=== PATIENT | male | born 1950 | race Caucasian/White ===

== ENCOUNTER 2021-02-15 14:19 | Observation (INO) ==
[2021-02-15] MEDS ORDERED: *HR* Heparin 5,000 UNIT/ML VIAL IVP ONE ×2 (16:27→16:47)
[2021-02-15] MEDS ORDERED: *HR* Heparin 5,000 UNIT/ML VIAL IVP PRN ×4 (16:27→16:47)
[2021-02-15] MEDS ORDERED: Ondansetron 4 MG/2 ML VIAL IVP PRN (16:29)
[2021-02-15] MEDS ORDERED: Acetaminophen 325 MG TABLET PO PRN (16:29)
[2021-02-15] MEDS ORDERED: Melatonin 3 MG TABLET PO PRN (16:29)
[2021-02-15] MEDS ORDERED: Heparin 25,000 UNIT/250 ML 25,000 UNIT/250 ML IV.SOLN IVC SCH ×3 (16:30→17:15)
[2021-02-15] MEDS ORDERED: 0.9 % Sodium Chloride 1,000 ML IVC SCH ×2 (16:30→23:45)
[2021-02-15] MEDS ORDERED: Heparin 25,000UNIT/250ML 1/2NS 25,000 UNIT/250 ML IV.SOLN IVC SCH (17:00)
[2021-02-15 17:39] LABS: Hematocrit 39.6 % (37.5-50.1); Hemoglobin 12.6 g/dL (12.9-16.9); Mean Corpuscular HGB Conc 31.8 g/dL (31.6-35.5); Mean Corpuscular Hemoglobin 27.5 pg (28.0-33.3); Mean Corpuscular Volume 86.3 fL (83.0-100.0); Platelet Count 281 K/mcL (140-400); Red Blood Count 4.59 M/mcL (4.19-5.50); Red Cell Distribution Width 13.7 % (11.5-14.5); White Blood Count 7.1 K/mcL (4.3-11.1)
[2021-02-15 17:59] LABS: BUN/Creatinine Ratio 16 (6-26); Blood Urea Nitrogen 16 mg/dL (8-23); Calcium 8.9 mg/dL (8.6-10.3); Carbon Dioxide 25 mEq/L (23-29); Chloride 104 mEq/L (98-107); Glucose 116 mg/dL (70-105); Osmolality,Calculated 288 (280-300); Potassium 3.8 mEq/L (3.5-5.1); Sodium 138 mEq/L (136-145); eGFR For African Americans > 60 (> 60); eGFR For Non-African Americans > 60 (> 60)
[2021-02-15 18:36] LABS: INR 1.5; Prothrombin Time 16.8 Seconds (9.4-12.1)
[2021-02-15 18:39] LABS: Activated Partial Thrombo Time 83.5 Seconds (26.0-36.0)
[2021-02-15 18:52] LABS: Heparin anti-factor XA UFH 1.67 IU/mL (0.30-0.70)
[2021-02-15] MEDS: Gabapentin 300 MG CAPSULE PO SCH (20:54)
[2021-02-16 01:59] LABS: Hematocrit 36.4 % (37.5-50.1); Hemoglobin 11.9 g/dL (12.9-16.9); Mean Corpuscular HGB Conc 32.7 g/dL (31.6-35.5); Mean Corpuscular Hemoglobin 28.3 pg (28.0-33.3); Mean Corpuscular Volume 86.5 fL (83.0-100.0); Mean Platelet Volume 9.9 fL (9.4-12.4); Platelet Count 244 K/mcL (140-400); Red Blood Count 4.21 M/mcL (4.19-5.50); Red Cell Distribution Width 13.7 % (11.5-14.5); White Blood Count 6.6 K/mcL (4.3-11.1)
[2021-02-16 02:17] LABS: Magnesium 2.1 mg/dL (1.6-2.6); Phosphorous 3.2 mg/dL (2.7-4.5)
[2021-02-16 02:18] LABS: BUN/Creatinine Ratio 16 (6-26); Blood Urea Nitrogen 17 mg/dL (8-23); Calcium 8.3 mg/dL (8.6-10.3); Carbon Dioxide 25 mEq/L (23-29); Chloride 108 mEq/L (98-107); Glucose 95 mg/dL (70-105); Osmolality,Calculated 289 (280-300); Sodium 139 mEq/L (136-145); eGFR For African Americans > 60 (> 60); eGFR For Non-African Americans > 60 (> 60)
[2021-02-16] MEDS ORDERED: lisinopriL 20 MG TABLET PO SCH (09:00)
[2021-02-16] MEDS: Gabapentin 300 MG CAPSULE PO SCH (09:29)
[2021-02-16 11:14] VITALS: BP 131/83; PULSE 82; TEMP 98.6; O2SAT 96
== END 2021-02-16 13:13 | disposition home or self-care (01) ==
LOC: 3ANU → SUATTDRO 15:30
PROVIDERS: ADMIT Internal Medicine; ATTEND Internal Medicine